=== PATIENT | female | born 1980 | race Caucasian/White ===

== ENCOUNTER 2021-08-25 14:07 | Inpatient (IN) ==
[2021-08-25] MEDS ORDERED: IOPAMIDOL 100 ML BOTTLE IV ONE (14:08)
[2021-08-25] MEDS ORDERED: methylPREDNISolone SOD SUCC 125 MG/2 ML VIAL IV ONE (14:10)
[2021-08-25] MEDS ORDERED: IPRATROPIUM/ALBUTEROL 3 ML AMPUL.NEB NEB ONE ×3 (14:13→14:18)
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
--- NOTE | 2021-08-25 15:21 | XRay Report ---
INDICATION: CP, SOB, covid positive TECHNIQUE: AP portable semiupright chest x-ray COMPARISON: Previous chest x-ray dated 05/09/2021 FINDINGS: Lungs:Bilateral patchy pulmonary parenchymal infiltrates. Appearance is consistent with covid pneumonia. This patient has a positive covid test. Findings are new since prior examination. Heart, vascular:No significant cardiomegaly. Pulmonary vascularity is normal. No pulmonary edema or pulmonary congestion Mediastinum, bernard:No mediastinal widening. No hilar mass Pleura:No pleural fluid. No pleural-based mass or calcification Skeletal:Negative. Incidental note is made of bilateral thoracic spinal cord stimulators IMPRESSION: Bilateral pulmonary parenchymal infiltrates consistent with covid pneumonia Interpreted and Authenticated by: Eldon Menchaca 08/25/21
--- NOTE | 2021-08-25 15:29 | Cat Scan Report ---
INDICATION: covid + SOB, hypoxia, CP, hx of PE COMPARISON: Chest x-ray dated 08/25/2021 TECHNIQUE: Axial images obtained through the chest. 80ml Isovue 370 injected intravenously, and scanning was performed during pulmonary arterial phase. Sagittally and coronally reformatted images were obtained. MIP reformatted images. FINDINGS: Lungs:There are extensive bilateral pulmonary parenchymal infiltrates consistent with covid pneumonia. There is consolidation in the right middle lobe. There are cystic abnormalities with in the right middle lobe. These may be underlying emphysematous cyst. Cavitation is unusual with covid pneumonia although superimposed bacterial pneumonia is possible. There are no air-fluid levels. Follow-up CT scan recommended. Mediastinum, vascular:Evaluation of the pulmonary vasculature is somewhat suboptimal due to patient motion. Main pulmonary artery, right pulmonary artery, left pulmonary artery are negative. No intraluminal filling defects. No lobar, segmental, or subsegmental emboli. Main pulmonary artery measures 3.1 cm maximally. This is enlarged and consistent with pulmonary arterial hypertension. Thoracic aorta is negative. No aneurysmal dilatation No pathologic mediastinal or hilar adenopathy Heart:No cardiomegaly. No pericardial effusion.. There is no reflux of contrast material into the inferior vena cava or hepatic veins Pleura:No significant pleural effusion. No pleural mass or calcification Axilla, supraclavicular regions, chest wall:No pathologic axillary or supraclavicular adenopathy. Musculoskeletal:Negative thoracic spine. No compression fracture. No lytic lesion. No rib or sternal lesions. There are spinal cord stimulator leads with in the thoracic spine Upper Abdomen:Negative. There is mild splenomegaly. Spleen measures 12.4 cm in maximum AP dimension. IMPRESSION: 1. Extensive pulmonary parenchymal infiltrates consistent with covid pneumonia 2. Cystic abnormalities in the right middle lobe may be underlying emphysema. Cavitating lesions are possible. Follow-up CT scan recommended 3. Negative pulmonary angiogram. No pulmonary embolism 4. Mild enlargement of main pulmonary artery consistent pulmonary arterial hypertension 5. Mild splenomegaly The exam was performed using radiation dose optimization techniques including, but not limited to, automated exposure control, adjustment of the mA and/or kV according to patient size and use of iterative reconstruction technique. Interpreted and Authenticated by: Eldon Menchaca 08/25/21
[2021-08-25 15:44] LABS: ALT/SGPT 71 U/L (<40); AST/SGOT 82 U/L (<32); Albumin 3.4 gm/dL (3.2-5.2); Albumin/Globulin Ratio 1.1 (1.0-2.3); Alkaline Phosphatase 104 U/L (39-117); Bilirubin,Total 0.4 mg/dL (0.1-1.0); Blood Urea Nitrogen 13 mg/dL (6-20); Calcium 7.7 mg/dL (8.6-10.4); Carbon Dioxide 24 mmol/L (22-30); Chloride 96 mmol/L (96-108); Glomerular Filtration Rate 80; Glucose 154 mg/dL (70-105)
[2021-08-25 16:00] LABS: Basophils # (Auto) 0.01 K/mcL (0.00-0.30); Basophils % (Auto) 0.2 % (0.0-2.0); Eosinophils # (Auto) 0 K/mcL (0.00-0.70); Eosinophils % (Auto) 0 % (0.0-7.0); Hematocrit 34.9 % (34.1-44.9); Hemoglobin 11.4 g/dL (11.2-15.7); Lymphocytes # (Auto) 1.08 K/mcL (1.50-4.80); Lymphocytes % (Auto) 19.9 % (15.5-49.0); Mean Cell Volume 98.6 fL (80.0-100.0); Mean Corpuscular HGB Conc 32.7 g/dL (31.0-36.0); Mean Platelet Volume 10.7 fL (7.4-10.4); Monocytes # (Auto) 0.23 K/mcL (0.10-0.90); Monocytes % (Auto) 4.2 % (1.0-12.0); Neutrophils % (Auto) 75.7 % (38.0-78.0); Platelet Count 97 K/mcL (140-440); RBC 3.54 M/mcL (3.59-5.38); Red Cell Distribution Width 14.7 % (11.5-14.5); WBC 5.4 K/mcL (4.5-11.0)
[2021-08-25 16:15] LABS: proBNP 168.7 pg/mL (<125.0)
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
[2021-08-25] MEDS ORDERED: ONDANSETRON 4 MG/2 ML VIAL IV PRN (19:20)
[2021-08-25] MEDS ORDERED: guaiFENesin/DEXTROMETHORPHAN ORAL SOL PO PRN (19:20)
[2021-08-25] MEDS ORDERED: REMDESIVIR 200 MG in 0.9 % SODIUM CHLORIDE 250 ML IV ONE (19:20)
[2021-08-25] MEDS ORDERED: SENNOSIDES 1 TABLET PO PRN (19:20)
[2021-08-25] MEDS ORDERED: traMADol 50 MG TABLET PO PRN (19:20)
[2021-08-25] MEDS ORDERED: DEXTROSE 50% 50 ML VIAL IV PRN (19:20)
[2021-08-25] MEDS ORDERED: LACTULOSE 20 GM/30 ML ORAL.SOL PO PRN (19:20)
[2021-08-25] MEDS ORDERED: ACETAMINOPHEN 325 MG TABLET PO PRN (19:20)
[2021-08-25] MEDS ORDERED: DEXTROSE 31 GM ORAL.SUSP PO PRN (19:20)
[2021-08-25] MEDS ORDERED: CYCLOBENZAPRINE 10 MG TABLET PO PRN (19:33)
[2021-08-25] MEDS ORDERED: HYDROcodone/APAP 5/325MG TABLET PO PRN (19:45)
[2021-08-25] MEDS ORDERED: TOCILIZUMAB 800 MG in 0.9 % SODIUM CHLORIDE 60 ML IV SCH (19:45)
[2021-08-25 20:36] LABS: Prothrombin Time 13.5 sec (11.9-14.5)
[2021-08-25 20:42] LABS: ALT/SGPT 78 U/L (<40); AST/SGOT 86 U/L (<32); Albumin 3.2 gm/dL (3.2-5.2); Alkaline Phosphatase 103 U/L (39-117); Bilirubin,Total 0.3 mg/dL (0.1-1.0); Blood Urea Nitrogen 13 mg/dL (6-20); Calcium 7.6 mg/dL (8.6-10.4); Carbon Dioxide 24 mmol/L (22-30); Chloride 98 mmol/L (96-108); Globulin 3.1 gm/dL (2.2-3.7); Glomerular Filtration Rate 92; Glucose 252 mg/dL (70-105); Lactate Dehydrogenase 706 U/L (135-225)
[2021-08-25] MEDS: buPROPion 100 MG TAB.SR.12H PO SCH (21:49)
[2021-08-25] MEDS: MONTELUKAST 10 MG TABLET PO SCH (21:49)
[2021-08-25] MEDS: TOPIRAMATE 100 MG TABLET PO SCH (21:49)
[2021-08-25] MEDS: busPIRone 15 MG TABLET PO SCH (21:49)
[2021-08-25] MEDS: risperiDONE 1 MG TABLET PO SCH (21:50)
[2021-08-25] MEDS: GABAPENTIN 300 MG CAPSULE PO SCH (21:51)
[2021-08-25] MEDS: DOCUSATE SODIUM 100 MG CAPSULE PO SCH (21:52)
[2021-08-25] MEDS: Diclofenac Sodium 1 % gel TOPICAL SCH (21:53)
[2021-08-25] MEDS: INSULIN LISPRO 1 UNIT/0.01 ML UNIT SQ SCH (21:53)
[2021-08-25] MEDS: QUEtiapine 100 MG TABLET PO SCH (21:53)
[2021-08-25] MEDS: 0.9 % SODIUM CHLORIDE 10 ML SYRINGE IV SCH (22:17)
[2021-08-26] MEDS: DICYCLOMINE 20 MG TABLET PO SCH ×4 (03:09→17:13)
[2021-08-26] MEDS: 0.9 % SODIUM CHLORIDE 10 ML SYRINGE IV SCH ×3 (06:34→22:48)
[2021-08-26 07:11] LABS: Basophils # (Auto) 0.01 K/mcL (0.00-0.30); Basophils % (Auto) 0.2 % (0.0-2.0); Eosinophils # (Auto) 0 K/mcL (0.00-0.70); Eosinophils % (Auto) 0 % (0.0-7.0); Hematocrit 36.6 % (34.1-44.9); Hemoglobin 11.3 g/dL (11.2-15.7); Lymphocytes % (Auto) 24.7 % (15.5-49.0); Mean Cell Volume 99.5 fL (80.0-100.0); Mean Corpuscular HGB Conc 30.9 g/dL (31.0-36.0); Mean Platelet Volume 10.8 fL (7.4-10.4); Monocytes # (Auto) 0.23 K/mcL (0.10-0.90); Monocytes % (Auto) 5.2 % (1.0-12.0); Neutrophils % (Auto) 69.9 % (38.0-78.0); Platelet Count 87 K/mcL (140-440); RBC 3.68 M/mcL (3.59-5.38); Red Cell Distribution Width 14.6 % (11.5-14.5); WBC 4.5 K/mcL (4.5-11.0)
[2021-08-26] MEDS ORDERED: PANTOPRAZOLE 40 MG TABLET PO SCH (07:30)
[2021-08-26 07:32] LABS: ALT/SGPT 78 U/L (<40); AST/SGOT 80 U/L (<32); Albumin 2.9 gm/dL (3.2-5.2); Alkaline Phosphatase 90 U/L (39-117); Bilirubin,Total 0.2 mg/dL (0.1-1.0); Blood Urea Nitrogen 12 mg/dL (6-20); Calcium 7.3 mg/dL (8.6-10.4); Carbon Dioxide 26 mmol/L (22-30); Chloride 103 mmol/L (96-108); Globulin 2.9 gm/dL (2.2-3.7); Glomerular Filtration Rate 108; Glucose 201 mg/dL (70-105)
[2021-08-26] MEDS ORDERED: POTASSIUM CHLORIDE 20 MEQ TABLET PO SCH (08:00)
[2021-08-26] MEDS: INSULIN LISPRO 1 UNIT/0.01 ML UNIT SQ SCH ×4 (08:19→22:45)
[2021-08-26] MEDS: DOCUSATE SODIUM 100 MG CAPSULE PO SCH ×2 (08:20→22:44)
[2021-08-26] MEDS: busPIRone 15 MG TABLET PO SCH ×2 (08:20→22:44)
[2021-08-26] MEDS: TOPIRAMATE 100 MG TABLET PO SCH ×2 (08:21→22:46)
[2021-08-26] MEDS: risperiDONE 1 MG TABLET PO SCH ×2 (08:21→22:46)
[2021-08-26] MEDS: buPROPion 100 MG TAB.SR.12H PO SCH ×2 (08:21→22:47)
[2021-08-26] MEDS: GABAPENTIN 300 MG CAPSULE PO SCH ×3 (08:21→22:45)
[2021-08-26] MEDS: Diclofenac Sodium 1 % gel TOPICAL SCH ×4 (08:21→22:45)
--- NOTE | 2021-08-26 08:50 | Internal Med Progress Note ---
SUBJECTIVE Subjective Patient information: Note initiated : 08/26/21 at 8:48 am Service Date, if different from initiated Date: [] Patient: Kate Sorenson a 41 y/o F admitted on 08/25/21 for SOB . Chief Complaint: [CoVID pneumonia] Interval history: Ms. Sorenson is a 41 year old F history of COPD, obstructive sleep apnea on CPAP, type 2 diabetes mellitus, morbid obesity, essential hypertension's, presenting with 2 to 3-day history of shortness of breath together with nonproductive cough and respiratory symptoms. No prior similar episode. Patient has not previously been diagnosed with Covid pneumonia. Patient is an unvaccinated against Covid pneumonia. Patient had acute onset, gradually worsening symptoms of shortness of breath together with nonproductive cough and respiratory wheezing over the past 2 to 3 days. She denies any chest pain or palpitations. She denies any sputum production. She denies any fever, chills, or diaphoresis. She denies any muscle aches cramps or general body weakness. Vital signs at ED presentations significant for oxygen saturations in the 80s on room air, as well as tachypnea with rate of breathing up to mid 40s. Also had mild tachycardia with heart rate in the 100s. Rest of the vital signs within normal limits. Labs significant for lack of leukocytosis with WBC 5.4.Covid Nelly positive.Chest x-ray showing bilateral pulmonary infiltrates typical for Covid pneumonia. 08/26: Afebrile. Was on BiPAP overnight, now on high flow oxygen 50L/min, FiO2 100%. Did not prone overnight. c/o moderate SOB. c/o nonproductive cough without sputum production. c/o wheezing. Denies chest pain. Denies fever, chills, or sweating. Denies anxiety. Constitutional Vitals: Vital Signs Temp Pulse Resp BP Pulse Ox 36.9 C 73 34 H 109/76 92 08/26/21 04:00 08/26/21 08:20 08/26/21 08:20 08/26/21 06:00 08/26/21 08:20 Period Temp Pulse Resp BP Sys/Castellon Pulse Ox Last 24 Hr 36.9 C-38.3 C 71-109 21-44 88-149/48-97 71-95 Intake and Output 08/25/21 08/26/2108/26/21 21:59 05:59 13:59 Intake Total 100 750 Output Total 0 0 Balance 100 750 Weight 124.539 kg Intake & Output: Intake & Output 08/25/21 08/26/21 08/26/21 21:59 05:59 13:59 Intake Total 100 750 Output Total 0 0 Balance 100 750 Weight 124.539 kg Intake: IV 100 250 Veklury 200 mg In Sodium 250 Chloride 0.9% 250 ml @ 500 mls/ hr IV ONCE ONE Rx#:[id number] Actemra 800 mg In Sodium 100 Chloride 0.9% 60 ml @ 100 mls/ hr IV ONCE CHELO Rx#:[id number] Oral 500 Output: Void Amount 0 0 Other: Meal snack Nourishment/Supplement name yogurt X2 # Bowel Movements 0 General appearance: cooperative, morbidly obese and no acute distress Head Head exam: Present atraumatic and normal inspection Eye Eye exam: Present normal appearance ENT ENT exam: Present mucous membranes moist, normal exam and normal external ear exam Additional comments: High flow oxygen in place Neck Neck exam: Present normal inspection Respiratory Respiratory exam: Present normal respiratory exam, decreased breath sounds and rhonchi Cardiovascular Cardiovascular exam: Present normal rate and rhythm GI/Abdominal GI/Abdominal exam: Present normal bowel sounds Additional comments: obese abdomen Back Exam Back exam: Present normal inspection Neurological Exam Neurological exam: Present alert and oriented X3 Skin Skin exam: Present intact and warm OBJ DATA Labs CBC & Chem 7: 08/26/21 06:11 08/26/21 06:11 Labs: Abnormal Lab Results 08/26/21 08/26/21 08/25/21 06:11 06:11 19:47 RBC MCHC 30.9 L RDW 14.6 H Plt Count 87 L MPV 10.8 H Lymph # (Auto) 1.10 L Fibrinogen D-Dimer Glucose 201 H Calcium 7.3 L Ferritin AST 80 H ALT 78 H Lactate Dehydrogenase C-Reactive Protein NT-Pro-B Natriuret Pep Total Protein 5.8 L Albumin 2.9 L Procalcitonin 0.23 H 08/25/21 08/25/21 08/25/21 19:47 14:28 14:28 RBC MCHC RDW Plt Count MPV Lymph # (Auto) Fibrinogen 535 H D-Dimer 0.62 H Glucose 252 H Calcium 7.6 L Ferritin 990.0 H AST 86 H ALT 78 H Lactate Dehydrogenase 706 H C-Reactive Protein 11.50 H NT-Pro-B Natriuret Pep Total Protein Albumin Procalcitonin 08/25/21 08/25/21 08/25/21 14:21 14:21 14:21 RBC 3.54 L MCHC RDW 14.7 H Plt Count 97 L MPV 10.7 H Lymph # (Auto) 1.08 L Fibrinogen D-Dimer Glucose 154 H Calcium 7.7 L Ferritin AST 82 H ALT 71 H Lactate Dehydrogenase C-Reactive Protein NT-Pro-B Natriuret Pep 168.7 H Total Protein Albumin Procalcitonin Meds: Medications Acetaminophen (Acetaminophen 325 Mg Tablet) 650 mg PO Q6HP PRN; Protocol PRN Reason: Per Pain Protocol/Fever > 101 Hydrocodone Bitart/Acetaminophen (Hydrocodone/Apap 5/325mg Tablet) 2 tab PO DAILYP PRN PRN Reason: Pain Albuterol/Ipratropium (Ipratropium/Albuterol 3 Ml Ampul.Neb) 3 ml NEB Q4HRT PRN PRN Reason: Wheezing Bupropion HCl (Bupropion 100 Mg Tab.Sr.12h) 200 mg PO BID [facility] Last Admin: 08/26/21 08:21 Dose: 200 mg Documented by: Buspirone HCl (Buspirone 15 Mg Tablet) 15 mg PO BID [facility] Last Admin: 08/26/21 08:20 Dose: 15 mg Documented by: Cyclobenzaprine HCl (Cyclobenzaprine 10 Mg Tablet) 10 mg PO TIDP PRN PRN Reason: Spasms Dexamethasone (Dexamethasone 4 Mg Tablet) 6 mg PO DAILY [facility] Last Admin: 08/26/21 08:20 Dose: 6 mg Documented by: Dextrose (Dextrose 50% 50 Ml Vial) 0 ml IV UD PRN PRN Reason: Hypoglycemia Diagnostic Test (Pha) (Accu-Chek 1 Each Strip) 1 each FS ACHS [facility] Last Admin: 08/26/21 08:18 Dose: 1 each Documented by: Dicyclomine HCl (Dicyclomine 20 Mg Tablet) 20 mg PO Q6 [facility] Last Admin: 08/26/21 06:33 Dose: 20 mg Documented by: Docusate Sodium (Docusate Sodium 100 Mg Capsule) 100 mg PO BID [facility] Last Admin: 08/26/21 08:20 Dose: 100 mg Documented by: Enoxaparin Sodium (Enoxaparin 40 Mg/0.4 Ml Syringe) 40 mg SQ DAILY [facility] Last Admin: 08/26/21 08:20 Dose: 40 mg Documented by: Furosemide (Furosemide 40 Mg Tablet) 40 mg PO QDAY [facility] Last Admin: 08/26/21 08:20 Dose: 40 mg Documented by: Gabapentin (Gabapentin 300 Mg Capsule) 1,800 mg PO TID [facility] Last Admin: 08/26/21 08:21 Dose: 1,800 mg Documented by: Glucose (Dextrose 31 Gm Oral.Susp) 15 gm PO PRN PRN PRN Reason: Hypoglycemia Guaifenesin (Guaifenesin/Dextromethorphan Oral Yuli) 10 ml PO Q4HP PRN PRN Reason: Cough REMDESIVIR 100 mg/ Sodium (Chloride) 250 mls @ 500 mls/hr IV Q24H [facility] Stop: 08/29/21 11:29 Insulin Human Lispro (Insulin Lispro 1 Unit/0.01 Ml Unit) 0 unit SQ ACHS [facility]; Protocol Last Admin: 08/26/21 08:19 Dose: 1 units Documented by: Lactulose (Lactulose 20 Gm/30 Ml Oral.Yuli) 10 gm PO DAILYP PRN PRN Reason: Constipation Montelukast Sodium (Montelukast 10 Mg Tablet) 10 mg PO QPM [facility] Last Admin: 08/25/21 21:49 Dose: 10 mg Documented by: Nicotine (Nicotine 21 Mg Patch) 21 mg TOPICAL DAILY@1000 CHELO Ondansetron HCl (Ondansetron 4 Mg/2 Ml Vial) 4 mg IV Q4HP PRN; Protocol PRN Reason: Nausea And Vomiting Pantoprazole Sodium (Pantoprazole 40 Mg Tablet) 40 mg PO QAMAC [facility] Last Admin: 08/26/21 08:19 Dose: 40 mg Documented by: Diclofenac Sodium 1 (% Gel) 1 dose TOPICAL QID [facility] Last Admin: 08/26/21 08:21 Dose: Not Given Documented by: Ubrogepant [Ubrelvy] (100 Mg Tablet) 100 dose PO BIDP PRN PRN Reason: Migraine Headache Potassium Chloride (Potassium Chloride 20 Meq Tablet) 20 meq PO QAMCC [facility] Last Admin: 08/26/21 08:19 Dose: 20 meq Documented by: Quetiapine Fumarate (Quetiapine 100 Mg Tablet) 300 mg PO QHS [facility] Last Admin: 08/25/21 21:53 Dose: 300 mg Documented by: Risperidone (Risperidone 1 Mg Tablet) 4 mg PO BID [facility] Last Admin: 08/26/21 08:21 Dose: 4 mg Documented by: Senna (Sennosides 1 Tablet) 2 tab PO [employer] PRN PRN Reason: Constipation Sodium Chloride (0.9 % Sodium Chloride 10 Ml Syringe) 10 ml IV Q8 [facility] Last Admin: 08/26/21 06:34 Dose: 10 ml Documented by: Spironolactone (Spironolactone 25 Mg Tablet) 25 mg PO QDAY [facility] Last Admin: 08/26/21 08:20 Dose: 25 mg Documented by: Tiotropium Cypress (Tiotropium Cypress 18 Mcg Inhalant) 18 mcg INH QDAY [facility] Last Admin: 08/26/21 08:21 Dose: Not Given Documented by: Topiramate (Topiramate 100 Mg Tablet) 100 mg PO BID [facility] Last Admin: 08/26/21 08:21 Dose: 100 mg Documented by: Tramadol HCl (Tramadol 50 Mg Tablet) 50 - 100 mg PO [employer] PRN; Protocol PRN Reason: Pain Last Admin: 08/25/21 21:49 Dose: 100 mg Documented by: A/P Assessment and plan (1) Pneumonia due to 2019 novel coronavirus: Status: Acute (2) Acute respiratory failure with hypoxia: Status: Acute (3) Type 2 diabetes mellitus: Status: Chronic (4) Major depression: Status: Chronic (5) COPD (chronic obstructive pulmonary disease): Status: Chronic (6) Bipolar 1 disorder: Status: Chronic (7) Schizophrenia: Status: Chronic (8) SUZANNE on CPAP: Status: Acute (9) Morbid obesity: Status: Acute (10) Hypokalemia: Status: Acute Narrative A/P Narrative: Assessment and Plans: 1. CoVID pneumonia with acute respiratory failure with hypoxia: Stays in inpatient PCU with telemetry Isolation: airborne and contact CT angiogram chest no PE Lactic acid ABG Nelly positive Inflammatory markers cbc w/ auto diff in the morning to trend WBC Supplemental oxygen therapy, titrate to achieve spo2>=88% given COPD-er, currently on 50L/min, FiO2 100% Dexamethasone Remdesivir X5 days s/p Actemra 08/25 Lasix as gentle diuresis Lovenox Robitussin DM PRN cough Tylenol PRN fever DuoNeb NEB PRN wheezing 2. COPD: Supplemental oxygen therapy, titrate to achieve spo2>=88% given COPD-er, currently on 50L/min, FiO2 100% Spiriva DuoNeb NEB PRN wheezing 3. SUZANNE on CPAP: Continue CPAP at night while sleeping 4. Morbid obesity: [employer] patient on life style modifications such as healthy diet and regular exercise in order to lose weight 5. T2DM: HgA1c Hold oral hypoglycemics Low dose correctional scale insulin AC HS Accu Chek AC HS Hypoglycemia protocol Diabetic diet 6. Essential HTN: Continue oral antihypertensive from home regimen 7. Depression, bipolar disorder, and schizophrenia: Continue to monitor Continue antipsychotics from home regimen 8. Hypokalemia: Continue oral potassium replacement CMP in the morning to trend serum potassium level Also check serum Mg level and replace as needed GI ppx: Protonix PO DVT ppx: Lovenox Code status: Full Prognosis: guarded Disposition: inpatient PCU telemetry Time Spent With Patient Time: Total time spent is greater than 50% in coordination of care (as documented) at patient's floor/unit and/or counseling patient: Total time spent with greater than 50% in coordination of care (as documented) at patient's floor/unit and/or counseling patient:: Greater than 35 minutes QUALITY VTE Deep Vein Thrombosis/Pulmonary Embolism Present on Admission: No
[2021-08-26] MEDS ORDERED: DEXAMETHASONE 4 MG TABLET PO SCH (09:00)
[2021-08-26] MEDS ORDERED: ENOXAPARIN 40 MG/0.4 ML SYRINGE SQ SCH (09:00)
[2021-08-26] MEDS ORDERED: FUROSEMIDE 40 MG TABLET PO SCH (09:00)
[2021-08-26] MEDS ORDERED: TIOTROPIUM BROMIDE 18 MCG INHALANT INH SCH (09:00)
[2021-08-26] MEDS ORDERED: NON FORMULARY MEDICATION 1 DOSE MISCELL (Esomeprazole Magnesium 40 mg capsule,delayed rele PO SCH (09:00)
[2021-08-26] MEDS ORDERED: SPIRONOLACTONE 25 MG TABLET PO SCH (09:00)
[2021-08-26] MEDS ORDERED: NICOTINE 21 MG PATCH TOPICAL SCH (10:00)
[2021-08-26] MEDS: IPRATROPIUM/ALBUTEROL 3 ML AMPUL.NEB NEB PRN ×2 (10:05→19:20)
[2021-08-26] MEDS ORDERED: REMDESIVIR 100 MG in 0.9 % SODIUM CHLORIDE 250 ML IV SCH (11:00)
[2021-08-26] MEDS ORDERED: VANCOMYCIN PER PHARMACY IV SCH (12:23)
[2021-08-26] MEDS: VANCOMYCIN 1,500 MG in 0.9 % SODIUM CHLORIDE 500 ML IV SCH ×2 (14:18→22:46)
[2021-08-26] MEDS ORDERED: FUROSEMIDE 20 MG/2 ML VIAL IV ONE ×2 (20:14→20:29)
[2021-08-26] MEDS ORDERED: CHLORHEXIDINE GLUCONATE 1 ML ORAL.SOL SWABMOUTH SCH (21:00)
[2021-08-26] MEDS ORDERED: HEPARIN/NS 500 ML IV SCH (21:00)
[2021-08-26] MEDS ORDERED: PROPOFOL 1,000 MG in PREMIX 1 BAG IV SCH (21:00)
[2021-08-26] MEDS ORDERED: fentaNYL 2,500 MCG in 0.9 % SODIUM CHLORIDE 200 ML IV SCH (21:00)
[2021-08-26] MEDS ORDERED: NYSTATIN CRM 1 DOSE TUBE TOPICAL SCH (21:00)
--- NOTE | 2021-08-26 21:01 | Transfer Summary ---
Discharge Provider Provider Patient information: Note initiated : 08/26/21 at 8:57 pm Service Date, if different from initiated Date: [] Patient: Kate Sorenson 41 y/o F admitted on 08/25/21 for SOB . Chief Complaint: [] Date of admission: 08/25/21 19:02 Discharge date: 08/26/21 Primary care physician: Josh Quispe DO Consults: 08/25/21 Consult to Physician [CONS] Stat Comment: Consulting Provider: Abran Foster Reason For Exam: Physician to Consult Discharge Meds Discharge Medications Home Medications albuterol sulfate 90 mcg/actuation aerosol inhaler 2 puff INHALATION Q6H PRN 05/18/21 [History Confirmed 08/25/21 Last Taken 08/23/21 15:00] bromocriptine 2.5 mg tablet 2.5 mg PO BID 05/18/21 [History Confirmed 08/25/21 Last Taken 08/25/21 07:00] budesonide-formoterol HFA 160 mcg-4.5 mcg/actuation aerosol inhaler 2 puff INHALATION BID 05/18/21 [History Confirmed 08/25/21 Last Taken 08/25/21 07:00] bupropion HCl 200 mg tablet,12 hr sustained-release 200 mg PO BID 05/18/21 [History Confirmed 08/25/21 Last Taken 08/25/21 07:00] buspirone 15 mg tablet 15 mg PO BID 05/18/21 [History Confirmed 08/25/21 Last Taken 08/25/21 07:00] cyclobenzaprine 10 mg tablet 10 mg PO TIDP PRN 05/18/21 [History Confirmed 08/25/21 Last Taken 08/25/21 07:00] diclofenac sodium 1 % topical gel See Rx Instructions TOPICAL QID 05/18/21 [History Confirmed 08/25/21 Last Taken 08/20/21 07:00] dicyclomine 20 mg tablet 20 mg PO Q6H tab 05/18/21 [History Confirmed 08/26/21 Last Taken 08/25/21 07:00] dulaglutide 0.75 mg/0.5 mL subcutaneous pen injector (Trulicity) 0.75 mg SUBCUT QWEEK 05/18/21 [History Confirmed 08/25/21 Last Taken 08/24/21 07:00] erenumab-aooe 140 mg/mL subcutaneous auto-injector 140 mg SUBCUT QMONTH 05/18/21 [History Confirmed 08/25/21 Last Taken 08/01/21 07:00] esomeprazole magnesium 40 mg capsule,delayed release 40 mg PO QDAY 05/18/21 [History Confirmed 08/26/21 Last Taken 08/25/21 07:00] furosemide 40 mg tablet 40 mg PO QDAY 05/18/21 [History Confirmed 08/26/21 Last Taken 08/25/21 07:00] gabapentin 600 mg tablet 1,800 mg PO TID tab 05/18/21 [History Confirmed 08/26/21 Last Taken 08/25/21 07:00] hydrocodone 5 mg-acetaminophen 325 mg tablet 2 tab PO QDAY PRN tab 05/18/21 [History Confirmed 08/26/21 Last Taken 08/25/21 07:00] ipratropium 0.5 mg-albuterol 3 mg (2.5 mg base)/3 mL nebulization soln 3 ml INHALATION Q6H PRN ml 05/18/21 [History Confirmed 08/26/21 Last Taken 08/25/21 07:00] metformin 500 mg tablet 1,000 mg PO BID tab 05/18/21 [History Confirmed 08/26/21 Last Taken 08/25/21 07:00] montelukast 10 mg tablet 10 mg PO QPM 05/18/21 [History Confirmed 08/26/21 Last Taken 08/25/21 07:00] potassium chloride 20 mEq tablet,extended release 20 meq PO QDAY 05/18/21 [History Confirmed 08/26/21 Last Taken 08/25/21 07:00] promethazine 25 mg tablet 25 mg PO Q8H PRN tab 05/18/21 [History Confirmed 08/26/21 Last Taken 08/25/21 07:00] quetiapine 200 mg tablet 300 mg PO QHS tab 05/18/21 [History Confirmed 08/26/21 Last Taken 08/25/21 07:00] risperidone 4 mg tablet 4 mg PO BID 05/18/21 [History Confirmed 08/26/21 Last Taken 08/25/21 07:00] spironolactone 25 mg tablet 25 mg PO QDAY 05/18/21 [History Confirmed 08/26/21 Last Taken 08/25/21 07:00] tiotropium bromide 18 mcg capsule with inhalation device (Spiriva with HandiHaler) 1 cap INHALATION QDAY 05/18/21 [History Confirmed 08/26/21 Last Taken 08/25/21 07:00] topiramate 100 mg tablet 100 mg PO BID 05/18/21 [History Confirmed 08/26/21 Last Taken 08/25/21 07:00] ubrogepant 100 mg tablet (Ubrelvy) 100 mg PO BID PRN tab 05/18/21 [History Confirmed 08/26/21 Last Taken 08/25/21 07:00] tramadol 50 mg tablet See Rx Instructions PO QHS #30 tab 07/15/21 [Rx Confirmed 08/26/21 Last Taken 08/24/21 21:00] cephalexin 500 mg capsule 500 mg PO QID #28 cap 07/18/21 [Rx Confirmed 08/25/21 Last Taken 08/25/21 07:00] COURSE Hospital Course Hospital course: Transfer diagnosis * COVID-19 pneumonia-status post Actemra 08/25, remdesivir/dexamethasone, clinically deteriorating. Case discussed with [facility] with Dr. Santoyo. Patient accepted for further management. Patient will be intubated prior to discharge and started on mechanical ventilation. * Acute hypoxic respiratory failure-requiring 100% FiO2 on BiPAP with ABG 7.43/44/48. Initiate mechanical ventilation per protocol, ICU sedation on propofol/fentanyl * SUZANNE * Type II DM * Essential hypertension * History of depression/bipolar disorder/schizophrenia Brief hospital course Ms. Sorenson is a 41 year old F history of COPD, obstructive sleep apnea on CPAP, type 2 diabetes mellitus, morbid obesity, essential hypertension's, presenting with 2 to 3-day history of shortness of breath together with nonproductive cough and respiratory symptoms. No prior similar episode. Patient has not previously been diagnosed with Covid pneumonia. Patient is an unvaccinated against Covid pneumonia. Patient had acute onset, gradually worsening symptoms of shortness of breath together with nonproductive cough and respiratory wheezing over the past 2 to 3 days. She denies any chest pain or palpitations. She denies any sputum production. She denies any fever, chills, or diaphoresis. She denies any muscle aches cramps or general body weakness. Vital signs at ED presentations significant for oxygen saturations in the 80s on room air, as well as tachypnea with rate of breathing up to mid 40s. Also had mild tachycardia with heart rate in the 100s. Rest of the vital signs within normal limits. Labs significant for lack of leukocytosis with WBC 5.4.Covid Nelly positive.Chest x-ray showing bilateral pulmonary infiltrates typical for Covid pneumonia. 08/26: Afebrile. Was on BiPAP overnight, now on high flow oxygen 50L/min, FiO2 100%. Did not prone overnight. c/o moderate SOB. c/o nonproductive cough without sputum production. c/o wheezing. Denies chest pain. Denies fever, chills, or sweating. Denies anxiety. 8:45 PM- Patient continues to deteriorat clinically . Now requiring high percent FiO2 with sats in mid 80s. Patient will be intubated. Accepted for further management at tertiary center at [facility]. Accepting physician Sundar Chaudhry. Patient currently on remdesivir/dexamethasone, status post Actemra, on vancomycin for GPC on blood cultures. Critically ill, patient designates her roommate as primary decision maker. Discharge diagnosis: COVID-19 pneumonia Time Spent with Patient Time attestation: Total time spent providing and/or coordinating discharge services: EXAM Constitutional Vitals: Temp Pulse Resp BP Pulse Ox 100.0 F H 95 H 28 H 128/84 94 08/26/21 20:00 08/26/21 20:00 08/26/21 20:00 08/26/21 20:00 08/26/21 20:00 Discharge Data Data Completed and Pending Labs on day of discharge: Labs from last 24 hours 08/26/21 08/26/21 08/25/21 06:11 06:11 19:47 WBC 4.5 RBC 3.68 Hgb 11.3 Hct 36.6 MCV 99.5 MCH 30.7 MCHC 30.9 L RDW 14.6 H Plt Count 87 L MPV 10.8 H Neut % (Auto) 69.9 Lymph % (Auto) 24.7 [place] % (Auto) 5.2 Eos % (Auto) 0 Baso % (Auto) 0.2 Lymph # (Auto) 1.10 L [place] # (Auto) 0.23 Eos # (Auto) 0 Baso # (Auto) 0.01 Absolute Neutrophils 3.12 Sodium 139 Potassium 3.3 Chloride 103 Carbon Dioxide 26 Anion Gap 10.0 BUN 12 Creatinine 0.7 GFR Calculation 108 Glucose 201 H Calcium 7.3 L Ferritin Total Bilirubin 0.2 AST 80 H ALT 78 H Alkaline Phosphatase 90 Total Protein 5.8 L Albumin 2.9 L Globulin 2.9 Albumin/Globulin Ratio 1.0 Procalcitonin 0.23 H 08/25/21 19:47 WBC RBC Hgb Hct MCV MCH MCHC RDW Plt Count MPV Neut % (Auto) Lymph % (Auto) [place] % (Auto) Eos % (Auto) Baso % (Auto) Lymph # (Auto) [place] # (Auto) Eos # (Auto) Baso # (Auto) Absolute Neutrophils Sodium Potassium Chloride Carbon Dioxide Anion Gap BUN Creatinine GFR Calculation Glucose Calcium Ferritin 990.0 H Total Bilirubin AST ALT Alkaline Phosphatase Total Protein Albumin Globulin Albumin/Globulin Ratio Procalcitonin Preliminary micro results at discharge 08/25/21 14:21 Blood Culture - Preliminary Blood 08/25/21 14:28 Blood Culture - Preliminary Blood Gram positive cocci Discharge Plan Patient/Caregiver Discharge Instructions Activity: other Diet: NPO Activity Restrictions/Additional Instructions: Transfer to [facility] accepting physician Dr. Santoyo Ventilator management per protocol Prescriptions: No Action tramadol 50 mg tablet See Rx Instructions PO QHS Qty: 30 0RF Rx Instructions: Take 1-2 tabs PO every day at bedtime; albuterol sulfate 90 mcg/actuation HFA aerosol inhaler 2 puff inhalation Q6H PRN (Reason: short of breath) 0RF bromocriptine 2.5 mg tablet 2.5 mg PO BID 0RF Rx Instructions: Then take 1 tab BID daily budesonide-formoterol 160-4.5 mcg/actuation HFA aerosol inhaler 2 puff inhalation BID 0RF bupropion HCl 200 mg tablet sustained-release 12 hr 200 mg PO BID 0RF buspirone 15 mg tablet 15 mg PO BID 0RF cyclobenzaprine 10 mg tablet 10 mg PO TIDP PRN (Reason: IBS) 0RF diclofenac sodium 1 % gel See Rx Instructions topical QID 0RF Rx Instructions: topical four times daily; apply to single elbow, wrist or hand; for hand includes palm/fingers/back of hand dicyclomine 20 mg tablet 20 mg PO Q6H 0RF erenumab-aooe 140 mg/mL auto-injector 140 mg subcut QMONTH 0RF esomeprazole magnesium 40 mg capsule,delayed release(DR/EC) 40 mg PO QDAY 0RF furosemide 40 mg tablet 40 mg PO QDAY 0RF gabapentin 600 mg tablet 1,800 mg PO TID 0RF hydrocodone-acetaminophen 5-325 mg tablet 2 tab PO QDAY PRN (Reason: Pain) 0RF ipratropium-albuterol 0.5 mg-3 mg(2.5 mg base)/3 mL solution for nebulization 3 ml inhalation Q6H PRN (Reason: Shortness Of Breath) 0RF metformin 500 mg tablet 1,000 mg PO BID 0RF montelukast 10 mg tablet 10 mg PO QPM 0RF potassium chloride 20 mEq tablet extended release 20 meq PO QDAY 0RF promethazine 25 mg tablet 25 mg PO Q8H PRN (Reason: Nausea) 0RF quetiapine 200 mg tablet 300 mg PO QHS 0RF risperidone 4 mg tablet 4 mg PO BID 0RF Spiriva with HandiHaler 18 mcg capsule, w/inhalation device 1 cap inhalation QDAY 0RF Rx Instructions: puncture 1 cap using device; one dose = 2 inhalations spironolactone 25 mg tablet 25 mg PO QDAY 0RF topiramate 100 mg tablet 100 mg PO BID 0RF Trulicity 0.75 mg/0.5 mL pen injector 0.75 mg subcut QWEEK 0RF Ubrelvy 100 mg tablet 100 mg PO BID PRN (Reason: migraine) 0RF Rx Instructions: as a single dose; may repeat once in >=2 hours after first dose if needed cephalexin 500 mg capsule 500 mg PO QID Qty: 28 0RF Follow Up Plan Follow up with: Josh Quispe DO [Primary Care Provider] - [facility]: [facility] Rehab Potential: Serious I certify that the patient requires SNF services: No Overall status at discharge: patient is not back to baseline Discharge Orders: Discharge Order (Routine); Ordered 08/26/21 Ordered By: Ryan DRUMMOND VTE Deep Vein Thrombosis/Pulmonary Embolism Present on Admission: No
[2021-08-26] MEDS ORDERED: fentaNYL 50 ML ONE (21:02)
[2021-08-26] MEDS ORDERED: PROPOFOL 100 ML IV ONE (21:02)
--- NOTE | 2021-08-26 21:27 | Emergency Department Note ---
Event Note Event Note: Procedure note 08/26/2021: I was called to the ICU by Dr. Serrano for intubation of this patient. She is admitted for COVID-19 pneumonia and has been on BiPAP but is still hypoxic. She is going to be transferred to another facility but intubation was requested for stabilization. On arrival she is satting 92% on BiPAP. I discussed the risks and benefits of intubation including worsening disability and . Patient is agreeable with intubation and transfer. Patient was monitored continuously t hroughout the procedure. She was situated in an appropriate position on the bed. She was given 20 mg of IV etomidate and 80 mg of IV rocuronium for RSI. Patient was intubated via video laryngoscopy with a 7.0 tube on the first attempt. She did have a brief desaturation to the 70s during intubation but returned to 100% after bagging through the endotracheal tube. Tube placement confirmed with bilateral breath sounds and capnography. Patient was placed on the ventilator and tolerated the procedure well. I spoke with Dr. Serrano who will initiate his continued treatment of this patient. -Laci Viera MD
[2021-08-26] MEDS ORDERED: ROCURONIUM 10 MG/ML ML IV ONE (22:19)
[2021-08-26] MEDS ORDERED: ETOMIDATE 20 MG/10 ML VIAL IV ONE (22:19)
[2021-08-26] MEDS: QUEtiapine 100 MG TABLET PO SCH (22:46)
[2021-08-26] MEDS: MONTELUKAST 10 MG TABLET PO SCH (22:46)
--- NOTE | 2021-08-27 06:03 | XRay Report ---
INDICATION: OG placement. TECHNIQUE: Supine abdomen. COMPARISON: None FINDINGS:Examination was initially interpreted by [facility] evaluation of the abdomen. There is an esophagogastric tube which is well-positioned within the stomach. IMPRESSION: Esophagogastric tube in the stomach Interpreted and Authenticated by: Eldno Menchaca 08/27/21
--- NOTE | 2021-08-27 06:05 | XRay Report ---
INDICATION: ETT Placement TECHNIQUE: AP portable semiupright chest x-ray COMPARISON: Previous chest x-rays dated 08/25/2021, 05/09/2021. Previous chest CT scan dated 08/25/2021 FINDINGS:Examination was initially interpreted by [facility]. There is an endotracheal tube with its tip at the thoracic inlet. Lungs:Bilateral diffuse pulmonary parenchymal infiltrates. These are worse on 08/25/2021. Appearance remains consistent with severe covid pneumonia Heart, vascular:No significant cardiomegaly. Pulmonary vascularity is normal. No pulmonary edema or pulmonary congestion Mediastinum, bernard:No mediastinal widening. No hilar mass Pleura:No pleural fluid. No pleural-based mass or calcification Skeletal:Negative. IMPRESSION: 1. Endotracheal tube tip in good position at the thoracic inlet 2. Diffuse pulmonary parenchymal infiltrates consistent with severe covid pneumonia. Infiltrates are worse than on 08/25/2021 Interpreted and Authenticated by: Eldon Menchaca 08/27/21
== END 2021-08-26 22:20 | disposition short-term general hospital (02) | DRG 208 ==
LOC: ED 14:07 → ICU 19:02
PROVIDERS: ADMIT Internal Medicine; ATTEND Internal Medicine